=== PATIENT | male | born 1965 | race Caucasian/White ===

== ENCOUNTER 2022-06-23 10:45 | Inpatient (IN) | payer OTHER ==
[2022-06-23 11:03] VITALS: BMI 23.6
[2022-06-23] MEDS ORDERED: hydrOXYzine PAMOATE 25 MG CAPSULE (FP) PO PRN (12:02)
[2022-06-23] MEDS ORDERED: chlordiazePOXIDE HCL 25 MG CAPSULE PO ONE (12:02)
[2022-06-23] MEDS ORDERED: guaiFENesin 600 MG TABLET.ER (FP) PO PRN (12:02)
[2022-06-23] MEDS ORDERED: IBUPROFEN 600 MG TABLET (FP) PO PRN (12:02)
[2022-06-23] MEDS ORDERED: DICYCLOMINE HCL 10 MG CAPSULE PO PRN (12:02)
[2022-06-23] MEDS ORDERED: BENZONATATE 200 MG CAPSULE PO PRN (12:02)
[2022-06-23] MEDS ORDERED: LOPERAMIDE HCL 2 MG CAPSULE PO PRN (12:02)
[2022-06-23] MEDS ORDERED: BENZOCAINE/MENTHOL (CHLORASEPTIC ) LOZENGE MM PRN (12:02)
[2022-06-23] MEDS ORDERED: POLYETHYLENE GLYCOL (HEALTHYLAX) 3350 17 GM PACKET PO PRN (12:02)
[2022-06-23] MEDS ORDERED: ONDANSETRON *ODT* 4 MG TABLET SL PRN (12:02)
[2022-06-23] MEDS ORDERED: NALOXONE HCL (KLOXXADO) 8 MG SPRAY NS PRN (12:02)
[2022-06-23] MEDS ORDERED: BISMUTH SUBSALICYLATE 262 MG/15 ML BTL PO PRN (12:02)
[2022-06-23] MEDS ORDERED: NICOTINE 10 MG CARTRIDGE (INHALER) IH PRN (12:02)
[2022-06-23] MEDS ORDERED: NALOXONE HCL 0.4 MG/ML VIAL IM PRN (12:02)
[2022-06-23] MEDS ORDERED: IBUPROFEN 400 MG TABLET (FP) PO PRN (12:02)
[2022-06-23] MEDS ORDERED: ACETAMINOPHEN 325 MG TABLET (FP) PO PRN (12:02)
[2022-06-23] MEDS ORDERED: chlordiazePOXIDE HCL 25 MG CAPSULE PO PRN (12:02)
[2022-06-23] MEDS ORDERED: MAGNESIUM HYDROX 2400MG/30ML ORAL SUSPENSION 30 ML CUP PO PRN (12:02)
[2022-06-23] MEDS ORDERED: METHOCARBAMOL 500 MG TABLET PO PRN (12:02)
[2022-06-23] MEDS ORDERED: MAG HYDROX/AL HYDROX/SIMETH 30 ML UNIT-DOSE CUP PO PRN (12:02)
[2022-06-23] MEDS ORDERED: PRENATAL VITAMINS W/ FOLIC ACID TABLET (FP) PO ONE (12:42)
[2022-06-23] MEDS ORDERED: chlordiazePOXIDE HCL 25 MG CAPSULE ONE (12:42)
[2022-06-23] MEDS: PRENATAL VITAMINS W/ FOLIC ACID TABLET (FP) PO SCH (12:44)
[2022-06-23] MEDS: NICOTINE 14 MG/24 HOURS TOPICAL PATCH TD SCH (12:48)
[2022-06-23 15:51] LABS: POTASSIUM 3.9 mmol/L (3.5-5.1)
[2022-06-23 15:52] LABS: HEMOGLOBIN 16.1 GM/dL (11.7-16.9); MCH 29.1 pg (25.7-33.7); MCHC 34.3 g/dl (32.0-35.9); MEAN CELL VOLUME 84.8 fl (80-96); MEAN PLT VOLUME 8.7 fl (7.5-11.1); PLATELET COUNT 192 10^3/uL (134-434); RBC 5.54 M/mm3 (4.00-5.60); RDW 13.9 % (11.9-15.9); WHITE BLOOD COUNT 7.9 K/mm3 (4.0-10.0)
[2022-06-23 15:53] LABS: ALBUMIN 4.1 g/dl (3.4-5.0); BLOOD UREA NITROGEN 18.4 mg/dL (7-18); CALCIUM 9.3 mg/dL (8.5-10.1)
[2022-06-23 15:55] LABS: CREATININE 0.9 mg/dL (0.55-1.3)
[2022-06-23 15:57] LABS: TOT PROT 7.8 g/dl (6.4-8.2)
[2022-06-23] MEDS: chlordiazePOXIDE HCL 25 MG CAPSULE PO SCH ×2 (17:39→22:36)
[2022-06-23] MEDS ORDERED: MELATONIN 5 MG TABLETS PO SCH (22:00)
[2022-06-23] MEDS: traZODone HCL 50 MG TABLET (FP) PO SCH (22:36)
[2022-06-23] MEDS: THIAMINE HCL 100 MG TABLET (FP) PO SCH (22:36)
[2022-06-24] MEDS: chlordiazePOXIDE HCL 25 MG CAPSULE PO SCH ×4 (05:56→22:18)
[2022-06-24] MEDS: PRENATAL VITAMINS W/ FOLIC ACID TABLET (FP) PO SCH (10:13)
[2022-06-24] MEDS: NICOTINE 14 MG/24 HOURS TOPICAL PATCH TD SCH (10:15)
[2022-06-24] MEDS: traZODone HCL 50 MG TABLET (FP) PO SCH (22:18)
[2022-06-24] MEDS: THIAMINE HCL 100 MG TABLET (FP) PO SCH (22:18)
[2022-06-25] MEDS: chlordiazePOXIDE HCL 25 MG CAPSULE PO SCH ×4 (05:31→22:06)
[2022-06-25] MEDS: PRENATAL VITAMINS W/ FOLIC ACID TABLET (FP) PO SCH (10:03)
[2022-06-25] MEDS: NICOTINE 14 MG/24 HOURS TOPICAL PATCH TD SCH (10:03)
[2022-06-25] MEDS ORDERED: PHENAZOPYRIDINE HCL 100 MG TABLET (FP) PO ONE (20:00)
[2022-06-25] MEDS: THIAMINE HCL 100 MG TABLET (FP) PO SCH (22:05)
[2022-06-25] MEDS: traZODone HCL 50 MG TABLET (FP) PO SCH (22:05)
[2022-06-25 22:52] LABS: EPI CELLS 0 /uL (0-25.1); HYALINE CASTS 0 /uL (0-3.1); URINE APPEARANCE CLEAR; URINE BACTERIA 4 /uL (0-1359); URINE BILIRUBIN NEGATIVE (NEGATIVE); URINE COLOR YELLOW; URINE GLUCOSE (UA) NEGATIVE (NEGATIVE); URINE KETONE NEGATIVE (NEGATIVE); URINE LEUK ESTERASE TRACE (NEGATIVE); URINE NITRITE NEGATIVE (NEGATIVE); URINE PROTEIN NEGATIVE (NEGATIVE); URINE RBC 4 /uL (0-23.9); URINE WBC 3 /uL (0-25.8)
[2022-06-26] MEDS ORDERED: chlordiazePOXIDE HCL 10 MG CAPSULE PO PRN
[2022-06-26] MEDS: chlordiazePOXIDE HCL 10 MG CAPSULE PO SCH ×4 (05:53→22:34)
[2022-06-26] MEDS: PRENATAL VITAMINS W/ FOLIC ACID TABLET (FP) PO SCH (10:10)
[2022-06-26] MEDS: NICOTINE 14 MG/24 HOURS TOPICAL PATCH TD SCH (10:13)
[2022-06-26] MEDS: THIAMINE HCL 100 MG TABLET (FP) PO SCH (22:34)
[2022-06-26] MEDS: traZODone HCL 50 MG TABLET (FP) PO SCH (22:34)
[2022-06-27] MEDS: chlordiazePOXIDE HCL 10 MG CAPSULE PO SCH ×2 (05:58→17:38)
[2022-06-27] MEDS: NICOTINE 14 MG/24 HOURS TOPICAL PATCH TD SCH (10:23)
[2022-06-27] MEDS: PRENATAL VITAMINS W/ FOLIC ACID TABLET (FP) PO SCH (10:24)
[2022-06-27] MEDS: THIAMINE HCL 100 MG TABLET (FP) PO SCH (22:26)
[2022-06-27] MEDS: traZODone HCL 50 MG TABLET (FP) PO SCH (22:26)
[2022-06-28] MEDS ORDERED: chlordiazePOXIDE HCL 10 MG CAPSULE PO ONE (05:00)
[2022-06-28] MEDS: PRENATAL VITAMINS W/ FOLIC ACID TABLET (FP) PO SCH (10:02)
[2022-06-28] MEDS: NICOTINE 14 MG/24 HOURS TOPICAL PATCH TD SCH (10:02)
[2022-06-28 13:14] VITALS: BP 133/60; PULSE 100; RESP 20; TEMP 98.1
== END 2022-06-28 13:17 | disposition other institution (70) | DRG 774 ==
LOC: YASAS 10:45 → Y6N 12:08
PROVIDERS: ADMIT Allergy & Immunology; ATTEND Surgery
PROC: HZ2ZZZZ Detoxification Services for Substance Abuse Treatment (ICD-10-PCS; principal; 2022-06-23)
DX: F10.230 Alcohol dependence with withdrawal, uncomplicated (principal); F14.20 Cocaine dependence, uncomplicated; F17.210 Nicotine dependence, cigarettes, uncomplicated; F19.282 Other psychoactive substance dependence with psychoactive substance-induced sleep disorder; F19.24 Other psychoactive substance dependence with psychoactive substance-induced mood disorder; F39 Unspecified mood [affective] disorder; E78.5 Hyperlipidemia, unspecified; N39.0 Urinary tract infection, site not specified; Z62.810 Personal history of physical and sexual abuse in childhood; Z28.9 Immunization not carried out for unspecified reason; Z28.310 Unvaccinated for COVID-19; Z91.148 Patient's other noncompliance with medication regimen for other reason
CPT/HCPCS: 36415; 80053; 81003; 82140; 85027; 86780; 87086; 93005; 93010; C9803-CS; U0003; U0005

== ENCOUNTER 2022-06-28 13:26 | Inpatient (IN) | payer OTHER ==
[2022-06-28] MEDS ORDERED: MAGNESIUM HYDROX 2400MG/30ML ORAL SUSPENSION 30 ML CUP PO PRN (15:54)
[2022-06-28] MEDS ORDERED: IBUPROFEN 600 MG TABLET (FP) PO PRN (15:54)
[2022-06-28] MEDS ORDERED: ACETAMINOPHEN 325 MG TABLET (FP) PO PRN (15:54)
[2022-06-28] MEDS ORDERED: NALOXONE HCL 0.4 MG/ML VIAL IVPUSH PRN (15:54)
[2022-06-28] MEDS ORDERED: BENZOCAINE/MENTHOL (CHLORASEPTIC ) LOZENGE MM PRN (15:54)
[2022-06-28] MEDS ORDERED: POLYETHYLENE GLYCOL (HEALTHYLAX) 3350 17 GM PACKET PO PRN (15:54)
[2022-06-28] MEDS ORDERED: COLLOIDAL OATMEAL 1 BAR EACH TP PRN (15:54)
[2022-06-28] MEDS ORDERED: BENZONATATE 200 MG CAPSULE PO PRN (15:54)
[2022-06-28] MEDS ORDERED: NICOTINE POLACRILEX 4 MG GUM BUC PRN (15:54)
[2022-06-28] MEDS ORDERED: LOPERAMIDE HCL 2 MG CAPSULE PO PRN (15:54)
[2022-06-28] MEDS ORDERED: NALOXONE HCL (KLOXXADO) 8 MG SPRAY NS PRN (15:54)
[2022-06-28] MEDS ORDERED: METHOCARBAMOL 500 MG TABLET PO PRN (15:54)
[2022-06-28] MEDS ORDERED: guaiFENesin 600 MG TABLET.ER (FP) PO PRN (15:54)
[2022-06-28] MEDS: NICOTINE 21 MG/24 HOURS TOPICAL PATCH TD PRN (16:13)
[2022-06-28] MEDS: traZODone HCL 50 MG TABLET (FP) PO SCH (21:22)
[2022-06-28] MEDS: risperiDONE 1 MG TABLET PO SCH (21:23)
[2022-06-28] MEDS: MELATONIN 5 MG TABLETS PO SCH (21:23)
[2022-06-28] MEDS: THIAMINE HCL 100 MG TABLET (FP) PO SCH (21:23)
[2022-06-29] MEDS: MAG HYDROX/AL HYDROX/SIMETH 30 ML UNIT-DOSE CUP PO PRN (06:17)
[2022-06-29] MEDS: PRENATAL VITAMINS W/ FOLIC ACID TABLET (FP) PO SCH (09:26)
[2022-06-29] MEDS: NICOTINE 21 MG/24 HOURS TOPICAL PATCH TD PRN (09:27)
[2022-06-29] MEDS: THIAMINE HCL 100 MG TABLET (FP) PO SCH (21:12)
[2022-06-29] MEDS: traZODone HCL 50 MG TABLET (FP) PO SCH (21:12)
[2022-06-29] MEDS: MELATONIN 5 MG TABLETS PO SCH (21:12)
[2022-06-29] MEDS: risperiDONE 1 MG TABLET PO SCH (21:12)
[2022-06-30] MEDS: PRENATAL VITAMINS W/ FOLIC ACID TABLET (FP) PO SCH (10:14)
[2022-06-30] MEDS: THIAMINE HCL 100 MG TABLET (FP) PO SCH (21:06)
[2022-06-30] MEDS: traZODone HCL 50 MG TABLET (FP) PO SCH (21:06)
[2022-06-30] MEDS: MELATONIN 5 MG TABLETS PO SCH (21:07)
[2022-06-30] MEDS: risperiDONE 1 MG TABLET PO SCH (21:07)
[2022-07-01] MEDS ORDERED: NICOTINE 14 MG/24 HOURS TOPICAL PATCH TD PRN (09:17)
[2022-07-01] MEDS: PRENATAL VITAMINS W/ FOLIC ACID TABLET (FP) PO SCH (09:32)
[2022-07-01 13:30] LABS: HIV INTERPRETATION NEGATIVE (NEGATIVE)
[2022-07-01] MEDS: THIAMINE HCL 100 MG TABLET (FP) PO SCH (21:24)
[2022-07-01] MEDS: traZODone HCL 100 MG TABLET (FP) PO SCH (21:25)
[2022-07-01] MEDS: risperiDONE 1 MG TABLET PO SCH (21:25)
[2022-07-02] MEDS: PRENATAL VITAMINS W/ FOLIC ACID TABLET (FP) PO SCH (09:38)
[2022-07-02] MEDS: NICOTINE 10 MG CARTRIDGE (INHALER) IH PRN ×2 (09:38→21:01)
[2022-07-02] MEDS: THIAMINE HCL 100 MG TABLET (FP) PO SCH (21:00)
[2022-07-02] MEDS: traZODone HCL 100 MG TABLET (FP) PO SCH (21:01)
[2022-07-02] MEDS: risperiDONE 1 MG TABLET PO SCH (21:01)
[2022-07-03] MEDS: NICOTINE 10 MG CARTRIDGE (INHALER) IH PRN ×3 (06:31→21:03)
[2022-07-03] MEDS: PRENATAL VITAMINS W/ FOLIC ACID TABLET (FP) PO SCH (09:51)
[2022-07-03] MEDS: risperiDONE 1 MG TABLET PO SCH (21:02)
[2022-07-03] MEDS: THIAMINE HCL 100 MG TABLET (FP) PO SCH (21:02)
[2022-07-03] MEDS: traZODone HCL 100 MG TABLET (FP) PO SCH (21:02)
[2022-07-04] MEDS: NICOTINE 10 MG CARTRIDGE (INHALER) IH PRN ×4 (06:39→21:08)
[2022-07-04] MEDS: PRENATAL VITAMINS W/ FOLIC ACID TABLET (FP) PO SCH (09:44)
[2022-07-04] MEDS: traZODone HCL 100 MG TABLET (FP) PO SCH (21:07)
[2022-07-04] MEDS: THIAMINE HCL 100 MG TABLET (FP) PO SCH (21:07)
[2022-07-04] MEDS: risperiDONE 1 MG TABLET PO SCH (21:07)
[2022-07-05] MEDS: NICOTINE 10 MG CARTRIDGE (INHALER) IH PRN ×3 (06:02→21:13)
[2022-07-05] MEDS: PRENATAL VITAMINS W/ FOLIC ACID TABLET (FP) PO SCH (10:39)
[2022-07-05] MEDS: risperiDONE 1 MG TABLET PO SCH (21:13)
[2022-07-05] MEDS: traZODone HCL 100 MG TABLET (FP) PO SCH (21:13)
[2022-07-05] MEDS: THIAMINE HCL 100 MG TABLET (FP) PO SCH (21:13)
[2022-07-06] MEDS: PRENATAL VITAMINS W/ FOLIC ACID TABLET (FP) PO SCH (10:08)
[2022-07-06] MEDS: NICOTINE 10 MG CARTRIDGE (INHALER) IH PRN (10:08)
[2022-07-06] MEDS: hydrOXYzine PAMOATE 25 MG CAPSULE (FP) PO PRN (20:58)
[2022-07-06] MEDS: traZODone HCL 100 MG TABLET (FP) PO SCH (20:59)
[2022-07-06] MEDS: risperiDONE 1 MG TABLET PO SCH (20:59)
[2022-07-06] MEDS: THIAMINE HCL 100 MG TABLET (FP) PO SCH (20:59)
[2022-07-07] MEDS: NICOTINE 10 MG CARTRIDGE (INHALER) IH PRN ×2 (08:14→14:42)
[2022-07-07] MEDS: PRENATAL VITAMINS W/ FOLIC ACID TABLET (FP) PO SCH (10:32)
[2022-07-07] MEDS: IBUPROFEN 400 MG TABLET (FP) PO PRN (10:37)
[2022-07-07] MEDS: traZODone HCL 100 MG TABLET (FP) PO SCH (21:30)
[2022-07-07] MEDS: risperiDONE 1 MG TABLET PO SCH (21:30)
[2022-07-07] MEDS: hydrOXYzine PAMOATE 25 MG CAPSULE (FP) PO PRN (21:30)
[2022-07-07] MEDS: THIAMINE HCL 100 MG TABLET (FP) PO SCH (21:30)
[2022-07-08] MEDS: PRENATAL VITAMINS W/ FOLIC ACID TABLET (FP) PO SCH (09:35)
[2022-07-08] MEDS: NICOTINE 10 MG CARTRIDGE (INHALER) IH PRN ×4 (09:36→21:19)
[2022-07-08] MEDS: IBUPROFEN 400 MG TABLET (FP) PO PRN (09:36)
[2022-07-08 12:02] LABS: LDL CHOLESTEROL (ONLY SJRH) 157 mg/dL (5-100)
[2022-07-08 12:03] LABS: HDL CHOLESTEROL 37 mg/dL (40-60)
[2022-07-08] MEDS: risperiDONE 1 MG TABLET PO SCH (21:19)
[2022-07-08] MEDS: THIAMINE HCL 100 MG TABLET (FP) PO SCH (21:19)
[2022-07-08] MEDS: traZODone HCL 100 MG TABLET (FP) PO SCH (21:19)
[2022-07-09] MEDS: NICOTINE 10 MG CARTRIDGE (INHALER) IH PRN ×2 (06:08→12:34)
[2022-07-09] MEDS: PRENATAL VITAMINS W/ FOLIC ACID TABLET (FP) PO SCH (09:58)
[2022-07-09] MEDS: IBUPROFEN 400 MG TABLET (FP) PO PRN (09:59)
[2022-07-09] MEDS: risperiDONE 1 MG TABLET PO SCH (21:01)
[2022-07-09] MEDS: THIAMINE HCL 100 MG TABLET (FP) PO SCH (21:01)
[2022-07-09] MEDS: ATORVASTATIN CA 40 MG TABLET (FP) PO SCH (21:01)
[2022-07-09] MEDS: traZODone HCL 100 MG TABLET (FP) PO SCH (21:01)
[2022-07-10] MEDS: NICOTINE 10 MG CARTRIDGE (INHALER) IH PRN ×3 (06:02→18:32)
[2022-07-10] MEDS: PRENATAL VITAMINS W/ FOLIC ACID TABLET (FP) PO SCH (09:55)
[2022-07-10] MEDS: THIAMINE HCL 100 MG TABLET (FP) PO SCH (21:15)
[2022-07-10] MEDS: ATORVASTATIN CA 40 MG TABLET (FP) PO SCH (21:15)
[2022-07-10] MEDS: risperiDONE 1 MG TABLET PO SCH (21:15)
[2022-07-10] MEDS: traZODone HCL 100 MG TABLET (FP) PO SCH (21:15)
[2022-07-11] MEDS: NICOTINE 10 MG CARTRIDGE (INHALER) IH PRN ×3 (10:22→21:27)
[2022-07-11] MEDS: PRENATAL VITAMINS W/ FOLIC ACID TABLET (FP) PO SCH (10:22)
[2022-07-11] MEDS: THIAMINE HCL 100 MG TABLET (FP) PO SCH (21:26)
[2022-07-11] MEDS: traZODone HCL 100 MG TABLET (FP) PO SCH (21:26)
[2022-07-11] MEDS: ATORVASTATIN CA 40 MG TABLET (FP) PO SCH (21:26)
[2022-07-11] MEDS: risperiDONE 1 MG TABLET PO SCH (21:26)
[2022-07-12] MEDS: NICOTINE 10 MG CARTRIDGE (INHALER) IH PRN ×2 (07:11→17:35)
[2022-07-12] MEDS: PRENATAL VITAMINS W/ FOLIC ACID TABLET (FP) PO SCH (10:14)
[2022-07-12] MEDS: traZODone HCL 100 MG TABLET (FP) PO SCH (21:12)
[2022-07-12] MEDS: risperiDONE 1 MG TABLET PO SCH (21:13)
[2022-07-12] MEDS: THIAMINE HCL 100 MG TABLET (FP) PO SCH (21:13)
[2022-07-12] MEDS: ATORVASTATIN CA 40 MG TABLET (FP) PO SCH (21:13)
[2022-07-13] MEDS: NICOTINE 10 MG CARTRIDGE (INHALER) IH PRN ×3 (06:19→21:28)
[2022-07-13] MEDS: PRENATAL VITAMINS W/ FOLIC ACID TABLET (FP) PO SCH (09:36)
[2022-07-13] MEDS: THIAMINE HCL 100 MG TABLET (FP) PO SCH (21:28)
[2022-07-13] MEDS: risperiDONE 1 MG TABLET PO SCH (21:29)
[2022-07-13] MEDS: traZODone HCL 100 MG TABLET (FP) PO SCH (21:29)
[2022-07-13] MEDS: ATORVASTATIN CA 40 MG TABLET (FP) PO SCH (21:29)
[2022-07-14] MEDS: NICOTINE 10 MG CARTRIDGE (INHALER) IH PRN ×3 (05:49→16:33)
[2022-07-14] MEDS: PRENATAL VITAMINS W/ FOLIC ACID TABLET (FP) PO SCH (10:32)
[2022-07-14] MEDS: THIAMINE HCL 100 MG TABLET (FP) PO SCH (21:04)
[2022-07-14] MEDS: traZODone HCL 100 MG TABLET (FP) PO SCH (21:04)
[2022-07-14] MEDS: risperiDONE 1 MG TABLET PO SCH (21:05)
[2022-07-14] MEDS: ATORVASTATIN CA 40 MG TABLET (FP) PO SCH (21:05)
[2022-07-15] MEDS: PRENATAL VITAMINS W/ FOLIC ACID TABLET (FP) PO SCH (10:13)
[2022-07-15] MEDS: NICOTINE 10 MG CARTRIDGE (INHALER) IH PRN (13:16)
[2022-07-15] MEDS: THIAMINE HCL 100 MG TABLET (FP) PO SCH (21:05)
[2022-07-15] MEDS: ATORVASTATIN CA 40 MG TABLET (FP) PO SCH (21:05)
[2022-07-15] MEDS: traZODone HCL 100 MG TABLET (FP) PO SCH (21:05)
[2022-07-15] MEDS: risperiDONE 1 MG TABLET PO SCH (21:05)
[2022-07-16] MEDS: NICOTINE 10 MG CARTRIDGE (INHALER) IH PRN ×3 (05:59→19:04)
[2022-07-16] MEDS: PRENATAL VITAMINS W/ FOLIC ACID TABLET (FP) PO SCH (10:17)
[2022-07-16] MEDS: THIAMINE HCL 100 MG TABLET (FP) PO SCH (21:04)
[2022-07-16] MEDS: traZODone HCL 100 MG TABLET (FP) PO SCH (21:05)
[2022-07-16] MEDS: risperiDONE 1 MG TABLET PO SCH (21:05)
[2022-07-16] MEDS: ATORVASTATIN CA 40 MG TABLET (FP) PO SCH (21:05)
[2022-07-17] MEDS: NICOTINE 10 MG CARTRIDGE (INHALER) IH PRN ×3 (05:48→14:31)
[2022-07-17] MEDS: PRENATAL VITAMINS W/ FOLIC ACID TABLET (FP) PO SCH (09:47)
[2022-07-17] MEDS: THIAMINE HCL 100 MG TABLET (FP) PO SCH (21:14)
[2022-07-17] MEDS: traZODone HCL 100 MG TABLET (FP) PO SCH (21:14)
[2022-07-17] MEDS: ATORVASTATIN CA 40 MG TABLET (FP) PO SCH (21:14)
[2022-07-17] MEDS: risperiDONE 1 MG TABLET PO SCH (21:14)
[2022-07-18] MEDS: NICOTINE 10 MG CARTRIDGE (INHALER) IH PRN ×3 (05:58→21:36)
[2022-07-18] MEDS: PRENATAL VITAMINS W/ FOLIC ACID TABLET (FP) PO SCH (10:00)
[2022-07-18] MEDS: THIAMINE HCL 100 MG TABLET (FP) PO SCH (21:35)
[2022-07-18] MEDS: ATORVASTATIN CA 40 MG TABLET (FP) PO SCH (21:35)
[2022-07-18] MEDS: traZODone HCL 100 MG TABLET (FP) PO SCH (21:35)
[2022-07-18] MEDS: risperiDONE 1 MG TABLET PO SCH (21:35)
[2022-07-19] MEDS: NICOTINE 10 MG CARTRIDGE (INHALER) IH PRN ×3 (06:05→19:29)
[2022-07-19] MEDS: PRENATAL VITAMINS W/ FOLIC ACID TABLET (FP) PO SCH (09:46)
[2022-07-19] MEDS: traZODone HCL 100 MG TABLET (FP) PO SCH (21:20)
[2022-07-19] MEDS: risperiDONE 1 MG TABLET PO SCH (21:20)
[2022-07-19] MEDS: ATORVASTATIN CA 40 MG TABLET (FP) PO SCH (21:20)
[2022-07-19] MEDS: THIAMINE HCL 100 MG TABLET (FP) PO SCH (21:20)
[2022-07-20] MEDS: NICOTINE 10 MG CARTRIDGE (INHALER) IH PRN ×3 (06:27→21:24)
[2022-07-20] MEDS: PRENATAL VITAMINS W/ FOLIC ACID TABLET (FP) PO SCH (09:51)
[2022-07-20] MEDS: THIAMINE HCL 100 MG TABLET (FP) PO SCH (21:23)
[2022-07-20] MEDS: risperiDONE 1 MG TABLET PO SCH (21:23)
[2022-07-20] MEDS: traZODone HCL 100 MG TABLET (FP) PO SCH (21:23)
[2022-07-20] MEDS: ATORVASTATIN CA 40 MG TABLET (FP) PO SCH (21:24)
[2022-07-21] MEDS: NICOTINE 10 MG CARTRIDGE (INHALER) IH PRN ×2 (06:39→10:10)
[2022-07-21] MEDS: PRENATAL VITAMINS W/ FOLIC ACID TABLET (FP) PO SCH (10:10)
[2022-07-21] MEDS: traZODone HCL 100 MG TABLET (FP) PO SCH (21:04)
[2022-07-21] MEDS: risperiDONE 1 MG TABLET PO SCH (21:04)
[2022-07-21] MEDS: THIAMINE HCL 100 MG TABLET (FP) PO SCH (21:04)
[2022-07-21] MEDS: ATORVASTATIN CA 40 MG TABLET (FP) PO SCH (21:04)
[2022-07-22] MEDS: NICOTINE 10 MG CARTRIDGE (INHALER) IH PRN ×3 (06:55→21:49)
[2022-07-22] MEDS: AMMONIUM LACTATE 12% LOTION 225 GM BOTTLE TP PRN (09:36)
[2022-07-22] MEDS: PRENATAL VITAMINS W/ FOLIC ACID TABLET (FP) PO SCH (09:36)
[2022-07-22] MEDS: traZODone HCL 100 MG TABLET (FP) PO SCH (21:16)
[2022-07-22] MEDS: ATORVASTATIN CA 40 MG TABLET (FP) PO SCH (21:16)
[2022-07-22] MEDS: risperiDONE 1 MG TABLET PO SCH (21:16)
[2022-07-22] MEDS: THIAMINE HCL 100 MG TABLET (FP) PO SCH (21:16)
[2022-07-23] MEDS: NICOTINE 10 MG CARTRIDGE (INHALER) IH PRN ×3 (07:27→21:04)
[2022-07-23] MEDS: PRENATAL VITAMINS W/ FOLIC ACID TABLET (FP) PO SCH (10:18)
[2022-07-23] MEDS: AMMONIUM LACTATE 12% LOTION 225 GM BOTTLE TP PRN (10:19)
[2022-07-23] MEDS: ATORVASTATIN CA 40 MG TABLET (FP) PO SCH (21:04)
[2022-07-23] MEDS: risperiDONE 1 MG TABLET PO SCH (21:04)
[2022-07-23] MEDS: traZODone HCL 100 MG TABLET (FP) PO SCH (21:04)
[2022-07-23] MEDS: THIAMINE HCL 100 MG TABLET (FP) PO SCH (21:04)
[2022-07-24] MEDS: NICOTINE 10 MG CARTRIDGE (INHALER) IH PRN (05:52)
[2022-07-24 07:02] VITALS: BP 115/76; PULSE 84; RESP 18; TEMP 97.5
[2022-07-24] MEDS: MAG HYDROX/AL HYDROX/SIMETH 30 ML UNIT-DOSE CUP PO PRN (07:06)
== END 2022-07-24 09:10 | disposition home or self-care (01) | DRG 772 ==
LOC: YASAS 13:26 → Y3W 13:27
PROVIDERS: ADMIT Allergy & Immunology; ATTEND Psychiatry & Neurology Pain Medicine
PROC: HZ42ZZZ Group Counseling for Substance Abuse Treatment, Cognitive-Behavioral (ICD-10-PCS; principal; 2022-06-28)
DX: F10.20 Alcohol dependence, uncomplicated (principal); F14.20 Cocaine dependence, uncomplicated; F12.20 Cannabis dependence, uncomplicated; F17.210 Nicotine dependence, cigarettes, uncomplicated; F19.282 Other psychoactive substance dependence with psychoactive substance-induced sleep disorder; F19.24 Other psychoactive substance dependence with psychoactive substance-induced mood disorder; F39 Unspecified mood [affective] disorder; E78.5 Hyperlipidemia, unspecified; N39.0 Urinary tract infection, site not specified; R07.9 Chest pain, unspecified; Z59.00 Homelessness unspecified
CPT/HCPCS: 36415; 83718; 83721; 84478; 86803; 87389; 93005; 93010; C9803-CS; U0003; U0005

== ENCOUNTER 2022-07-06 23:40 | Emergency (ER) | payer OTHER ==
[2022-07-06 23:47] VITALS: BP 130/70; PULSE 84; RESP 18; TEMP 97; BMI 25.8
[2022-07-07] MEDS ORDERED: ACETAMINOPHEN 1000 MG/100 ML BAG IVPB ONE (00:31)
[2022-07-07] MEDS ORDERED: ACETAMINOPHEN INJECTION 100 ML IVPB ONE (00:34)
[2022-07-07 01:10] LABS: BASO % 0.8 % (0-2.0); EOS % 2.7 % (0-4.5); HEMATOCRIT 41.3 % (35.4-49); HEMOGLOBIN 13.9 GM/dL (11.7-16.9); LYMPH % 37.6 % (8-40); MCH 28.2 pg (25.7-33.7); MCHC 33.6 g/dl (32.0-35.9); MEAN PLT VOLUME 8.3 fl (7.5-11.1); MONO % 10.1 % (3.8-10.2); NEUT % 48.8 % (42.8-82.8); PLATELET COUNT 169 10^3/uL (134-434); RBC 4.91 M/mm3 (4.00-5.60); RDW 14.1 % (11.9-15.9); WHITE BLOOD COUNT 7.5 K/mm3 (4.0-10.0)
[2022-07-07 01:56] LABS: POTASSIUM 3.9 mmol/L (3.5-5.1)
[2022-07-07 02:00] LABS: CALCIUM 8.7 mg/dL (8.5-10.1)
[2022-07-07 02:03] LABS: CREATININE 0.8 mg/dL (0.55-1.3)
[2022-07-07 02:05] LABS: BILIRUBIN,TOTAL 0.3 mg/dL (0.2-1); TOT PROT 6.1 g/dl (6.4-8.2)
[2022-07-07 02:16] LABS: ALBUMIN 3.2 g/dl (3.4-5.0)
== END 2022-07-07 04:15 | disposition home or self-care (01) ==
LOC: JER 23:40
PROC: 3E033NZ Introduction of Analgesics, Hypnotics, Sedatives into Peripheral Vein, Percutaneous Approach (ICD-10-PCS; principal; 2022-07-07)
DX: R07.9 Chest pain, unspecified (principal); R05.1 Acute cough; Z20.822 Contact with and (suspected) exposure to COVID-19
CPT/HCPCS: 0241U-QW; 36415; 71046-TC-FY; 80053; 84484; 85025; 93005; 93010; 99285-25